=== PATIENT | female | born 1955 | race Caucasian/White ===

== ENCOUNTER 2022-06-16 22:25 | Inpatient (IN) | payer OTHER ==
[~2022-06-16] VITALS: Ht 170.2 cm; Wt 77.6 kg
[2022-06-16 22:29] VITALS: BP_SYST 112
[2022-06-16] MEDS ORDERED: cefTRIAXone 1 GM IVPB PREMIX 50 ML IV ONE (22:45)
[2022-06-16] MEDS ORDERED: NACL 0.9% 1,000 ML IV ONE (23:00)
[2022-06-17] VITALS (7 sets, daily range): BP systolic 135–146
[2022-06-17 00:14] LABS: BASOPHILS % (AUTO) 0.3 % (0.0-2.0); EOSINOPHILS # (AUTO) 0.1 K/uL (0.0-0.4); EOSINOPHILS % (AUTO) 0.7 % (0.0-4.0); HEMATOCRIT 34.2 % (36-48); HEMOGLOBIN 11.3 g/dL (12.0-16.0); LYMPHOCYTES # (AUTO) 0.5 K/uL (1.0-5.5); LYMPHOCYTES % (AUTO) 3.6 % (20.5-51.5); MEAN CORPUSCULAR HEMOGLOBIN 28 pg (27-31); MEAN CORPUSCULAR HGB CONC 33 % (32-36); MEAN CORPUSCULAR VOLUME 86 fL (79.0-98.0); MONOCYTES # (AUTO) 0.8 K/uL (0.0-1.0); MONOCYTES % (AUTO) 6.1 % (1.7-9.3); NEUTROPHILS # (AUTO) 11.6 K/uL (1.8-7.7); NEUTROPHILS % (AUTO) 89.3 % (40.0-70.0); PLATELET COUNT (AUTO) 192 K/uL (130-430); RED CELL DISTRIBUTION WIDTH 14.8 % (9.0-15.0)
[2022-06-17 00:56] LABS: ANION GAP 4 (5-15); CALCIUM 8.8 mg/dL (8.4-11.0); CHLORIDE 100 mmol/L (98-107); CREATININE 0.75 mg/dL (0.55-1.30); GLUCOSE 139 mg/dL (70-99); UREA NITROGEN, BLOOD 24 mg/dL (8-21)
[2022-06-17 01:04] LABS: ALANINE AMINOTRANSFERASE 38 U/L (12-78); ASPARTATE AMINOTRANSFERASE 22 U/L (10-37); TOTAL BILIRUBIN 0.3 mg/dL (0.0-1.0)
[2022-06-17 01:11] LABS: GFR AFRICAN AMERICAN 99 mL/min (>90)
[2022-06-17] MEDS ORDERED: ATRMDI INH (01:14)
[2022-06-17] MEDS ORDERED: OMEP20CA15 GT (01:14)
[2022-06-17] MEDS ORDERED: LEVE250T2 GT (01:14)
[2022-06-17] MEDS ORDERED: DIPH-934 GT (01:14)
[2022-06-17] MEDS ORDERED: VITD2000 GT (01:14)
[2022-06-17] MEDS ORDERED: LEVA15HF5 INH (01:14)
[2022-06-17] MEDS ORDERED: TYLL650 GT (01:14)
[2022-06-17] MEDS ORDERED: HYDR-3917 GT (01:14)
[2022-06-17] MEDS ORDERED: DOXA2TAB GT (01:14)
[2022-06-17] MEDS ORDERED: LACT1TAB14 GT (01:14)
[2022-06-17] MEDS ORDERED: BISA10SU77 RC (01:14)
[2022-06-17] MEDS ORDERED: ACET325T GT (01:14)
[2022-06-17 06:48] LABS: BILIRUBIN,URINE NEGATIVE (NEGATIVE); BLOOD, URINE 3+ (NEGATIVE); CLARITY/URINE SL CLOUDY (CLEAR); COLOR,URINE YELLOW (YELLOW); GLUCOSE,URINE NEGATIVE (NEGATIVE); KETONES,URINE NEGATIVE (NEGATIVE); LEUKOCYTE ESTERASE ,URINE 2+ (NEGATIVE); NITRITE, URINE NEGATIVE (NEGATIVE); PROTEIN URINE 2+ (NEGATIVE); UROBILINOGEN,URINE 0.2 (0.2-1.0)
[2022-06-17 06:56] LABS: BASOPHILS % (AUTO) 0.3 % (0.0-2.0); EOSINOPHILS # (AUTO) 0.1 K/uL (0.0-0.4); EOSINOPHILS % (AUTO) 0.7 % (0.0-4.0); HEMATOCRIT 34.2 % (36-48); HEMOGLOBIN 11.1 g/dL (12.0-16.0); LYMPHOCYTES # (AUTO) 0.6 K/uL (1.0-5.5); LYMPHOCYTES % (AUTO) 4.4 % (20.5-51.5); MEAN CORPUSCULAR HEMOGLOBIN 28 pg (27-31); MEAN CORPUSCULAR HGB CONC 33 % (32-36); MEAN CORPUSCULAR VOLUME 87 fL (79.0-98.0); MONOCYTES % (AUTO) 6.8 % (1.7-9.3); NEUTROPHILS # (AUTO) 12.4 K/uL (1.8-7.7); NEUTROPHILS % (AUTO) 87.8 % (40.0-70.0); PLATELET COUNT (AUTO) 198 K/uL (130-430); RED BLOOD CELL COUNT(AUTO) 3.95 MIL/uL (4.2-6.2); RED CELL DISTRIBUTION WIDTH 14.7 % (9.0-15.0); WHITE BLOOD COUNT (AUTO) 14.1 K/uL (4.8-10.8)
[2022-06-17] MEDS: ALBUTEROL SULFATE 0.083% 2.5 MG/3 ML VIAL.NEB INH SCH ×5 (07:25→23:09)
[2022-06-17 07:29] LABS: CALCIUM 8.5 mg/dL (8.4-11.0); CREATININE 0.59 mg/dL (0.55-1.30)
[2022-06-17 07:43] LABS: THYROID STIMULATING HORMONE 2.18 uIu/mL (0.36-3.74); TOTAL BILIRUBIN 0.3 mg/dL (0.0-1.0)
[2022-06-17 09:05] LABS: BACTERIA,URINE None Seen /HPF (None Seen); MUCUS,URINE None Seen /LPF (None Seen); RBC,URINE 50-80 /HPF (0-3); WBC,URINE 20-50 /HPF (0-3)
[2022-06-17] MEDS ORDERED: DIPHENHYDRAMINE HCL 12.5 MG/5 ML UDC GT PRN (12:30)
[2022-06-17] MEDS ORDERED: HYDROcodone/ACETAMIN 5-325 MG TAB (NORCO/ VICODIN) GT PRN (12:30)
[2022-06-17] MEDS ORDERED: ACETAMINOPHEN 325 MG TABLET GT PRN (12:30)
[2022-06-17] MEDS ORDERED: NALOXONE HCL 0.4 MG/ML AMP (NARCAN) IVP PRN (12:30)
[2022-06-17] MEDS ORDERED: BISACODYL 10 MG/SUPPOSITORY RC PRN (12:30)
[2022-06-17] MEDS ORDERED: ACETAMINOPHEN 650 MG/20.3 ML UDC GT SCH (12:30)
[2022-06-17] MEDS ORDERED: LevALBUTEROL HCL 1.25 MG/0.5 ML *CONC.* VIAL.NEB (XOPENEX CONC.) INH PRN (12:30)
[2022-06-17] MEDS: METHYLPREDNISOLONE SOD SUCC 40 MG/ML VIAL IVP SCH ×2 (15:19→21:15)
[2022-06-17] MEDS: D5/0.45 NS 1,000 ML IV SCH ×2 (20:15→23:00)
[2022-06-17] MEDS: LevETIRAcetam 500 MG/5 ML UDC ORAL LIQUID GT SCH (21:15)
[2022-06-17] MEDS: DOXAZOSIN MESYLATE 2 MG TABLET GT SCH (21:16)
[2022-06-17] MEDS ORDERED: cefTRIAXone 1 GM VIAL ONE (21:34)
[2022-06-17] MEDS: cefTRIAXone 1 GM IVPB PREMIX 50 ML IV SCH (22:20)
[2022-06-18] VITALS: BP_SYST 128
[2022-06-18] MEDS: ALBUTEROL SULFATE 0.083% 2.5 MG/3 ML VIAL.NEB INH SCH ×6 (03:56→23:06)
[2022-06-18] MEDS: METHYLPREDNISOLONE SOD SUCC 40 MG/ML VIAL IVP SCH ×3 (05:48→23:26)
[2022-06-18 08:00] VITALS: BP_SYST 158
[2022-06-18] MEDS: LevETIRAcetam 500 MG/5 ML UDC ORAL LIQUID GT SCH ×2 (09:52→23:25)
[2022-06-18] MEDS: CHOLECALCIFEROL (VITAMIN D3) 2,000 UNIT TABLET GT SCH (09:52)
[2022-06-18] MEDS: PANTOPRAZOLE SODIUM 40 MG TAB PO SCH (09:52)
[2022-06-18] MEDS: IPRATROPIUM BROM 0.5 MG/2.5 ML VIAL.NEB (ATROVENT) INH PRN (12:00)
[2022-06-18 14:18] VITALS: BP_SYST 132
[2022-06-18 18:09] VITALS: BP_SYST 117
[2022-06-18] MEDS: cefTRIAXone 1 GM IVPB PREMIX 50 ML IV SCH (21:00)
[2022-06-18] MEDS: DOXAZOSIN MESYLATE 2 MG TABLET GT SCH (23:25)
[2022-06-18] MEDS: MUPIROCIN 2% TOPICAL OINTMENT 22 GM NS SCH (23:26)
[2022-06-18] MEDS: D5/0.45 NS 1,000 ML IV SCH (23:28)
[2022-06-18] MEDS ORDERED: cefTRIAXone 1 GM VIAL ONE (23:40)
[2022-06-19] VITALS: BP_SYST 110
[2022-06-19] MEDS: METHYLPREDNISOLONE SOD SUCC 40 MG/ML VIAL IVP SCH ×3 (05:23→20:49)
[2022-06-19] MEDS: ALBUTEROL SULFATE 0.083% 2.5 MG/3 ML VIAL.NEB INH SCH ×2 (06:02→07:58)
[2022-06-19 07:53] LABS: HEMATOCRIT 33.1 % (36-48); HEMOGLOBIN 10.8 g/dL (12.0-16.0); LYMPHOCYTES # (AUTO) 0.3 K/uL (1.0-5.5); LYMPHOCYTES % (AUTO) 2.2 % (20.5-51.5); MEAN CORPUSCULAR HEMOGLOBIN 28 pg (27-31); MEAN CORPUSCULAR HGB CONC 33 % (32-36); MEAN CORPUSCULAR VOLUME 86 fL (79.0-98.0); MONOCYTES # (AUTO) 0.4 K/uL (0.0-1.0); MONOCYTES % (AUTO) 3.2 % (1.7-9.3); NEUTROPHILS # (AUTO) 12.7 K/uL (1.8-7.7); NEUTROPHILS % (AUTO) 94.6 % (40.0-70.0); PLATELET COUNT (AUTO) 229 K/uL (130-430); RED BLOOD CELL COUNT(AUTO) 3.83 MIL/uL (4.2-6.2); RED CELL DISTRIBUTION WIDTH 14.8 % (9.0-15.0); WHITE BLOOD COUNT (AUTO) 13.5 K/uL (4.8-10.8)
[2022-06-19 08:12] LABS: CALCIUM 8.3 mg/dL (8.4-11.0); CREATININE 0.68 mg/dL (0.55-1.30)
[2022-06-19 09:02] VITALS: BP_SYST 136
[2022-06-19] MEDS ORDERED: NS 250 ML IV ONE (10:30)
[2022-06-19] MEDS: CHOLECALCIFEROL (VITAMIN D3) 2,000 UNIT TABLET GT SCH (11:05)
[2022-06-19] MEDS: LevETIRAcetam 500 MG/5 ML UDC ORAL LIQUID GT SCH ×2 (11:05→20:51)
[2022-06-19] MEDS: MUPIROCIN 2% TOPICAL OINTMENT 22 GM NS SCH ×2 (11:06→20:51)
[2022-06-19] MEDS: PANTOPRAZOLE SODIUM 40 MG TAB PO SCH (11:07)
[2022-06-19 11:51] VITALS: BP_SYST 118
[2022-06-19] MEDS ORDERED: METOPROLOL TARTRATE 5 MG/5 ML VIAL IVP ONE ×2 (12:00→22:15)
[2022-06-19] MEDS ORDERED: METOPROLOL SUCCINATE 50 MG TAB.SR.24H (TOPROL XL) PO ONE (12:00)
[2022-06-19] MEDS: LevALBUTEROL HCL 1.25 MG/0.5 ML *CONC.* VIAL.NEB (XOPENEX CONC.) INH SCH ×2 (13:00→20:12)
[2022-06-19] MEDS: CEFEPIME 2 GM in D5W 100 ML IV SCH (13:50)
[2022-06-19 17:25] VITALS: BP_SYST 151
[2022-06-19] MEDS: DOXYCYCLINE HYCLATE 100 MG in D5W 100 ML IV SCH (18:42)
[2022-06-19] MEDS: D5/0.45 NS 1,000 ML IV SCH (18:45)
[2022-06-19 20:33] VITALS: BP_SYST 152
[2022-06-19 20:34] VITALS: BP_SYST 152
[2022-06-19] MEDS: METOPROLOL SUCCINATE 50 MG TAB.SR.24H (TOPROL XL) PO SCH (20:50)
[2022-06-19] MEDS: DOXAZOSIN MESYLATE 2 MG TABLET GT SCH (20:51)
[2022-06-20 00:40] VITALS: BP_SYST 127
[2022-06-20] MEDS: CEFEPIME 2 GM in D5W 100 ML IV SCH ×2 (01:00→13:58)
[2022-06-20] MEDS: LevALBUTEROL HCL 1.25 MG/0.5 ML *CONC.* VIAL.NEB (XOPENEX CONC.) INH SCH ×4 (01:41→19:00)
[2022-06-20] MEDS: DOXYCYCLINE HYCLATE 100 MG in D5W 100 ML IV SCH ×2 (03:36→13:58)
[2022-06-20] MEDS: METHYLPREDNISOLONE SOD SUCC 40 MG/ML VIAL IVP SCH ×3 (05:17→22:18)
[2022-06-20 08:00] VITALS: BP_SYST 128
[2022-06-20 08:56] VITALS: BP_SYST 127
[2022-06-20] MEDS: PANTOPRAZOLE SODIUM 40 MG TAB PO SCH (10:08)
[2022-06-20] MEDS: CHOLECALCIFEROL (VITAMIN D3) 2,000 UNIT TABLET GT SCH (10:08)
[2022-06-20] MEDS: METOPROLOL SUCCINATE 50 MG TAB.SR.24H (TOPROL XL) PO SCH ×2 (10:09→22:16)
[2022-06-20] MEDS: LevETIRAcetam 500 MG/5 ML UDC ORAL LIQUID GT SCH ×2 (10:09→22:18)
[2022-06-20] MEDS: MUPIROCIN 2% TOPICAL OINTMENT 22 GM NS SCH ×2 (10:09→22:15)
[2022-06-20] MEDS: D5/0.45 NS 1,000 ML IV SCH (10:11)
[2022-06-20 11:59] VITALS: BP_SYST 150
[2022-06-20 17:02] VITALS: BP_SYST 155
[2022-06-20 20:44] VITALS: BP_SYST 155
[2022-06-20] MEDS: DOXAZOSIN MESYLATE 2 MG TABLET GT SCH (22:17)
[2022-06-21] MEDS: LevALBUTEROL HCL 1.25 MG/0.5 ML *CONC.* VIAL.NEB (XOPENEX CONC.) INH SCH ×3 (01:46→12:10)
[2022-06-21] MEDS: CEFEPIME 2 GM in D5W 100 ML IV SCH ×2 (02:00→12:42)
[2022-06-21 02:09] VITALS: BP_SYST 124
[2022-06-21] MEDS: DOXYCYCLINE HYCLATE 100 MG in D5W 100 ML IV SCH ×2 (02:15→15:17)
[2022-06-21] MEDS: D5/0.45 NS 1,000 ML IV SCH (02:16)
[2022-06-21 06:42] LABS: BASOPHILS % (AUTO) 0.1 % (0.0-2.0); HEMATOCRIT 36.6 % (36-48); HEMOGLOBIN 12.1 g/dL (12.0-16.0); LYMPHOCYTES # (AUTO) 0.3 K/uL (1.0-5.5); LYMPHOCYTES % (AUTO) 2.6 % (20.5-51.5); MEAN CORPUSCULAR HEMOGLOBIN 28 pg (27-31); MEAN CORPUSCULAR HGB CONC 33 % (32-36); MEAN CORPUSCULAR VOLUME 85 fL (79.0-98.0); MONOCYTES # (AUTO) 0.6 K/uL (0.0-1.0); MONOCYTES % (AUTO) 5.1 % (1.7-9.3); NEUTROPHILS # (AUTO) 11.2 K/uL (1.8-7.7); NEUTROPHILS % (AUTO) 92.2 % (40.0-70.0); PLATELET COUNT (AUTO) 253 K/uL (130-430); RED BLOOD CELL COUNT(AUTO) 4.31 MIL/uL (4.2-6.2); WHITE BLOOD COUNT (AUTO) 12.2 K/uL (4.8-10.8)
[2022-06-21] MEDS: METHYLPREDNISOLONE SOD SUCC 40 MG/ML VIAL IVP SCH ×2 (07:07→15:17)
[2022-06-21 07:19] LABS: CALCIUM 8.8 mg/dL (8.4-11.0); CREATININE 0.69 mg/dL (0.55-1.30)
[2022-06-21] MEDS: METOPROLOL SUCCINATE 50 MG TAB.SR.24H (TOPROL XL) PO SCH ×2 (07:50→21:52)
[2022-06-21 08:00] VITALS: BP_SYST 126
[2022-06-21] MEDS ORDERED: ADENOSINE 6MG/2ML VIAL IVP ONE (08:00)
[2022-06-21] MEDS: PANTOPRAZOLE SODIUM 40 MG TAB PO SCH (09:53)
[2022-06-21] MEDS: CHOLECALCIFEROL (VITAMIN D3) 2,000 UNIT TABLET GT SCH (09:54)
[2022-06-21] MEDS: MUPIROCIN 2% TOPICAL OINTMENT 22 GM NS SCH ×2 (09:55→21:52)
[2022-06-21 11:15] VITALS: BP_SYST 124
[2022-06-21] MEDS: LevETIRAcetam 500 MG/5 ML UDC ORAL LIQUID GT SCH ×2 (11:24→21:55)
[2022-06-21 15:35] VITALS: BP_SYST 126
[2022-06-21 20:29] VITALS: BP_SYST 143
[2022-06-21] MEDS: DOXAZOSIN MESYLATE 2 MG TABLET GT SCH (21:52)
[2022-06-22] MEDS: METHYLPREDNISOLONE SOD SUCC 40 MG/ML VIAL IVP SCH ×3 (00:45→13:31)
[2022-06-22] MEDS: CEFEPIME 2 GM in D5W 100 ML IV SCH ×2 (00:47→13:25)
[2022-06-22] MEDS: D5/0.45 NS 1,000 ML IV SCH ×2 (00:52→23:00)
[2022-06-22 03:23] VITALS: BP_SYST 135
[2022-06-22] MEDS: DOXYCYCLINE HYCLATE 100 MG in D5W 100 ML IV SCH ×2 (04:11→13:32)
[2022-06-22] MEDS ORDERED: METOPROLOL TARTRATE 5 MG/5 ML VIAL IVP PRN (04:30)
[2022-06-22] MEDS: LevALBUTEROL HCL 1.25 MG/0.5 ML *CONC.* VIAL.NEB (XOPENEX CONC.) INH SCH ×4 (05:27→13:24)
[2022-06-22 08:00] VITALS: BP_SYST 133
[2022-06-22] MEDS ORDERED: ADENOSINE 6MG/2ML VIAL IVP ONE (08:45)
[2022-06-22] MEDS: CHOLECALCIFEROL (VITAMIN D3) 2,000 UNIT TABLET GT SCH (09:11)
[2022-06-22] MEDS: PANTOPRAZOLE SODIUM 40 MG TAB PO SCH (09:12)
[2022-06-22] MEDS: METOPROLOL SUCCINATE 50 MG TAB.SR.24H (TOPROL XL) PO SCH ×2 (09:12→21:11)
[2022-06-22] MEDS: LevETIRAcetam 500 MG/5 ML UDC ORAL LIQUID GT SCH ×2 (09:13→21:11)
[2022-06-22] MEDS: MUPIROCIN 2% TOPICAL OINTMENT 22 GM NS SCH ×2 (09:14→21:10)
[2022-06-22] MEDS ORDERED: DILTIAZEM HCL 60 MG TABLET PO ONE (09:45)
[2022-06-22 12:40] VITALS: BP_SYST 130
[2022-06-22 16:40] VITALS: BP_SYST 96
[2022-06-22] MEDS: IPRATROPIUM BROM 0.5 MG/2.5 ML VIAL.NEB (ATROVENT) INH PRN (19:40)
[2022-06-22] MEDS: levalbuterol HCL 0.63 MG/3 ML VIAL.NEB INH SCH (19:40)
[2022-06-22 21:08] VITALS: BP_SYST 128
[2022-06-22] MEDS: DILTIAZEM HCL 60 MG TABLET PO SCH (21:21)
[2022-06-22] MEDS: DOXAZOSIN MESYLATE 2 MG TABLET GT SCH (21:22)
[2022-06-23] MEDS: METHYLPREDNISOLONE SOD SUCC 40 MG/ML VIAL IVP SCH ×4 (00:14→21:54)
[2022-06-23] MEDS: IPRATROPIUM BROM 0.5 MG/2.5 ML VIAL.NEB (ATROVENT) INH PRN ×2 (00:16→13:36)
[2022-06-23] MEDS: levalbuterol HCL 0.63 MG/3 ML VIAL.NEB INH SCH ×4 (00:16→20:29)
[2022-06-23 00:43] VITALS: BP_SYST 139
[2022-06-23] MEDS: CEFEPIME 2 GM in D5W 100 ML IV SCH ×2 (01:26→13:05)
[2022-06-23] MEDS: DOXYCYCLINE HYCLATE 100 MG in D5W 100 ML IV SCH ×2 (05:03→16:58)
[2022-06-23 06:57] LABS: BASOPHILS % (AUTO) 0.1 % (0.0-2.0); HEMATOCRIT 39.2 % (36-48); HEMOGLOBIN 12.9 g/dL (12.0-16.0); LYMPHOCYTES # (AUTO) 0.2 K/uL (1.0-5.5); LYMPHOCYTES % (AUTO) 1.8 % (20.5-51.5); MEAN CORPUSCULAR HEMOGLOBIN 28 pg (27-31); MEAN CORPUSCULAR HGB CONC 33 % (32-36); MEAN CORPUSCULAR VOLUME 85 fL (79.0-98.0); MONOCYTES # (AUTO) 0.6 K/uL (0.0-1.0); NEUTROPHILS # (AUTO) 13.1 K/uL (1.8-7.7); NEUTROPHILS % (AUTO) 94.1 % (40.0-70.0); PLATELET COUNT (AUTO) 265 K/uL (130-430); RED BLOOD CELL COUNT(AUTO) 4.59 MIL/uL (4.2-6.2); RED CELL DISTRIBUTION WIDTH 14.9 % (9.0-15.0); WHITE BLOOD COUNT (AUTO) 13.9 K/uL (4.8-10.8)
[2022-06-23 07:22] LABS: ALBUMIN 2.9 g/dL (3.4-4.8); CALCIUM 8.7 mg/dL (8.4-11.0); CREATININE 0.65 mg/dL (0.55-1.30); TOTAL BILIRUBIN 0.6 mg/dL (0.0-1.0)
[2022-06-23 08:00] VITALS: BP_SYST 106
[2022-06-23] MEDS: PANTOPRAZOLE SODIUM 40 MG TAB PO SCH (09:44)
[2022-06-23] MEDS: METOPROLOL SUCCINATE 50 MG TAB.SR.24H (TOPROL XL) PO SCH ×2 (09:44→21:53)
[2022-06-23] MEDS: DILTIAZEM HCL 60 MG TABLET PO SCH ×2 (09:45→21:53)
[2022-06-23] MEDS: CHOLECALCIFEROL (VITAMIN D3) 2,000 UNIT TABLET GT SCH (09:45)
[2022-06-23] MEDS: LevETIRAcetam 500 MG/5 ML UDC ORAL LIQUID GT SCH ×2 (09:45→21:53)
[2022-06-23] MEDS: MUPIROCIN 2% TOPICAL OINTMENT 22 GM NS SCH (09:46)
[2022-06-23 10:47] VITALS: BP_SYST 106
[2022-06-23] MEDS: D5/0.45 NS 1,000 ML IV SCH (17:00)
[2022-06-23 20:00] VITALS: BP_SYST 125
[2022-06-23] MEDS: DOXAZOSIN MESYLATE 2 MG TABLET GT SCH (21:52)
[2022-06-24 00:30] VITALS: BP_SYST 112
[2022-06-24] MEDS: CEFEPIME 2 GM in D5W 100 ML IV SCH ×2 (01:07→13:34)
[2022-06-24] MEDS: DOXYCYCLINE HYCLATE 100 MG in D5W 100 ML IV SCH ×2 (04:00→15:19)
[2022-06-24] MEDS: levalbuterol HCL 0.63 MG/3 ML VIAL.NEB INH SCH ×4 (04:33→19:34)
[2022-06-24] MEDS: METHYLPREDNISOLONE SOD SUCC 40 MG/ML VIAL IVP SCH ×3 (06:56→23:25)
[2022-06-24] MEDS: LevETIRAcetam 500 MG/5 ML UDC ORAL LIQUID GT SCH ×2 (10:31→21:00)
[2022-06-24] MEDS: DILTIAZEM HCL 60 MG TABLET PO SCH ×2 (10:32→23:28)
[2022-06-24] MEDS: CHOLECALCIFEROL (VITAMIN D3) 2,000 UNIT TABLET GT SCH (10:32)
[2022-06-24] MEDS: METOPROLOL SUCCINATE 50 MG TAB.SR.24H (TOPROL XL) PO SCH ×2 (10:33→23:29)
[2022-06-24] MEDS: PANTOPRAZOLE SODIUM 40 MG TAB PO SCH (10:33)
[2022-06-24 12:27] VITALS: BP_SYST 135
[2022-06-24] MEDS: D5/0.45 NS 1,000 ML IV SCH (15:18)
[2022-06-24 17:59] VITALS: BP_SYST 135
[2022-06-24 20:00] VITALS: BP_SYST 138
[2022-06-24] MEDS: DOXAZOSIN MESYLATE 2 MG TABLET GT SCH (23:27)
[2022-06-25] VITALS: BP_SYST 135
[2022-06-25] MEDS: levalbuterol HCL 0.63 MG/3 ML VIAL.NEB INH SCH ×2 (01:29→07:11)
[2022-06-25] MEDS: CEFEPIME 2 GM in D5W 100 ML IV SCH (01:52)
[2022-06-25 04:00] VITALS: BP_SYST 134
[2022-06-25] MEDS: DOXYCYCLINE HYCLATE 100 MG in D5W 100 ML IV SCH (06:30)
[2022-06-25] MEDS: METHYLPREDNISOLONE SOD SUCC 40 MG/ML VIAL IVP SCH (06:30)
[2022-06-25 09:00] VITALS: BP_SYST 129
== END 2022-06-25 11:10 | DRG 871 ==
LOC: SED 22:25 → STU 06-17 02:56
PROVIDERS: ADMIT Internal Medicine; ATTEND Internal Medicine
DX: A41.9 Sepsis, unspecified organism (principal); G82.50 Quadriplegia, unspecified; J18.9 Pneumonia, unspecified organism; J96.20 Acute and chronic respiratory failure, unspecified whether with hypoxia or hypercapnia; J44.0 Chronic obstructive pulmonary disease with (acute) lower respiratory infection; J44.1 Chronic obstructive pulmonary disease with (acute) exacerbation; Z99.11 Dependence on respirator [ventilator] status; N39.0 Urinary tract infection, site not specified; I11.0 Hypertensive heart disease with heart failure; I50.9 Heart failure, unspecified; G40.909 Epilepsy, unspecified, not intractable, without status epilepticus; R13.10 Dysphagia, unspecified; Z20.822 Contact with and (suspected) exposure to COVID-19; J20.9 Acute bronchitis, unspecified; M62.49 Contracture of muscle, multiple sites; Z93.0 Tracheostomy status; Z79.1 Long term (current) use of non-steroidal anti-inflammatories (NSAID); Z79.899 Other long term (current) drug therapy; Z74.01 Bed confinement status; Z87.440 Personal history of urinary (tract) infections; Z87.891 Personal history of nicotine dependence; Z93.1 Gastrostomy status
CPT/HCPCS: 36415; 71045; 71250-TC; 76376; 80048; 80053; 81000; 83605; 83880; 84443; 84484; 85025; 87040; 87070-TC; 87081; 87086; 87205-TC; 93005; 94640; 94760; 96361; 96365; 96375; 99291; G0378; J0153; J0692; J0696; J1030; J1953; J3490; J7060; J7612; J7613; J7614